=== PATIENT | female | born 1980 | race Caucasian/White ===

== ENCOUNTER → 2019-10-16 | Outpatient (CLI) | payer OTHER ==
[~2019-10-16] MED LIST: [UNRECOGNIZED DRUG - CODE] PO
[2019-10-16 13:30] LABS: MICROSCOPIC NOT IND
[2019-10-16 13:32] LABS: ALANINE AMINOTRANSFERASE 33 U/L (12-78); ALBUMIN 3.9 g/dL (3.4-5.0); ANION GAP 6 mmol/L (5-15); CALCIUM 8.6 mg/dL (8.5-10.1); CHLORIDE 110 mmol/L (98-107); CREATININE 0.64 mg/dL (0.55-1.02)
[2019-10-16 13:33] LABS: ALKALINE PHOSPHATASE 43 U/L (45-117); BILIRUBIN,TOTAL 0.4 mg/dL (0.2-1.0); TOTAL PROTEIN 7.1 g/dL (6.4-8.2)
[2019-10-16 13:35] LABS: CULTURE INDICATED? NO
[2019-10-16 14:01] LABS: BASOPHILS # (AUTO) 0.05 x10^3/uL (0-0.1); BASOPHILS % (AUTO) 1 % (0-1); EOSINOPHILS # (AUTO) 0.22 x10^3/uL (0-0.4); EOSINOPHILS % (AUTO) 3 % (1-7); LYMPHOCYTES # (AUTO) 1.91 x10^3/uL (1-3.4); LYMPHOCYTES % (AUTO) 23 % (22-44); MD NO; MEAN CORPUSCULAR HEMOGLOBIN 28.8 pg (27.0-34.8); MEAN CORPUSCULAR HGB CONC 33.4 g/dL (32.4-35.8); MEAN CORPUSCULAR VOLUME 86.1 fL (80-100); MEAN PLATELET VOLUME 7.7 fL (7.4-10.4); MONOCYTES # (AUTO) 0.53 x10^3/uL (0.2-0.8); MONOCYTES % (AUTO) 7 % (2-9); NEUTROPHILS # (AUTO) 5.53 x10^3/uL (1.8-6.8); NEUTROPHILS % (AUTO) 67 % (42-75); PLATELET COUNT 372 x10^3/uL (130-400); RED BLOOD COUNT 4.97 x10^6/uL (3.82-5.3); RED CELL DISTRIBUTION WIDTH 13.7 % (9.6-15.2)
== END | disposition home or self-care (01) ==
LOC: STAR 12:21
PROVIDERS: ATTEND Obstetrics & Gynecology
DX: Z01.812 Encounter for preprocedural laboratory examination (principal); N92.0 Excessive and frequent menstruation with regular cycle; N94.6 Dysmenorrhea, unspecified; R10.2 Pelvic and perineal pain
CPT/HCPCS: 36415; 80053; 81003; 84702; 85025

== ENCOUNTER 2019-10-25 05:42 | Day surgery (SDC) | payer OTHER ==
[~2019-10-25] VITALS: Ht 162.6 cm; Wt 87.0 kg
[2019-10-25] MEDS ORDERED: LACTATED RINGERS 1,000 ML IV SCH (06:04)
[2019-10-25 06:19] VITALS: BP 124/80
[2019-10-25] MEDS ORDERED: ACETAMINOPHEN 500 MG TABLET PO ONE (06:30)
[2019-10-25] MEDS ORDERED: BUPIVACAINE/PF-EPI 0.5% 1:200K ONE (06:37)
[2019-10-25 06:39] LABS: HCG UR SG 1.005 (1.003-1.030)
[2019-10-25] MEDS ORDERED: GABAPENTIN 300 MG CAPSULE ONE ×2 (07:20)
[2019-10-25] MEDS ORDERED: MIDAZOLAM 1 MG/ML, 2ML ONE ×2 (07:24→09:40)
[2019-10-25] MEDS ORDERED: FENTANYL PF 250 MCG/5ML ONE (07:24)
[2019-10-25] MEDS ORDERED: PROPOFOL 200 ML ONE (07:28)
[2019-10-25] MEDS ORDERED: DEXAMETHASONE 4 MG/ML, 1ML ONE (07:54)
[2019-10-25] MEDS ORDERED: PROPOFOL 10 MG/ML, 20ML ONE (07:54)
[2019-10-25] MEDS ORDERED: NEOSTIGMINE 1 MG/ML, 10ML ONE (07:54)
[2019-10-25] MEDS ORDERED: GLYCOPYRROLATE 0.2MG/1ML, 5ML ONE (07:54)
[2019-10-25] MEDS ORDERED: SUCCINYLCHOLINE 20 MG/ML, 10ML ONE (07:54)
[2019-10-25] MEDS ORDERED: CEFAZOLIN 1,000 MG ONE (07:54)
[2019-10-25] MEDS ORDERED: ROCURONIUM 10MG/ML,5ML ONE (07:54)
[2019-10-25] MEDS ORDERED: ONDANSETRON 2MG/ML, 2ML ONE ×2 (07:54→15:17)
[2019-10-25] MEDS ORDERED: PROMETHAZINE 25 MG/ML, 1ML IV PRN (08:00)
[2019-10-25] MEDS ORDERED: hydrALAzine 20 MG/ML, 1ML IV PRN (08:00)
[2019-10-25] MEDS ORDERED: LABETALOL 5MG/ML, 20ML IV PRN (08:00)
[2019-10-25] MEDS ORDERED: DIAZEPAM 5 MG/ML, 2ML IVPush PRN (08:00)
[2019-10-25] MEDS ORDERED: MEPERIDINE/PF 25MG/0.5ML IVPush PRN (08:00)
[2019-10-25] MEDS ORDERED: ALBUTEROL SULFATE 2.5 MG/3 ML NPPB PRN (08:00)
[2019-10-25] MEDS ORDERED: HYDROmorphone 1 MG/ML, 1ML INJ IVPush PRN (08:00)
[2019-10-25] MEDS ORDERED: OXYcodone 5 MG/5 ML ORAL.SOL UDC PO PRN (08:00)
[2019-10-25] MEDS ORDERED: PROPOFOL 100 ML ONE (08:39)
[2019-10-25] MEDS ORDERED: SODIUM CHLORIDE 0.9% 50 ML ONE (08:56)
[2019-10-25] MEDS ORDERED: FLUORESCEIN SODIUM 500 MG/5 ML ONE (08:56)
[2019-10-25] MEDS ORDERED: EPINEPHRINE 1 MG/ML, 1ML ONE (08:56)
[2019-10-25] MEDS ORDERED: BUPIVACAINE/PF 0.25% ONE (08:56)
[2019-10-25] MEDS ORDERED: NEOMY/POLYMYXIN B GU IRR. 1 ML ONE (08:57)
[2019-10-25] MEDS ORDERED: SUGAMMADEX 200 MG/2 ML IVPush ONE (09:59)
[2019-10-25] MEDS ORDERED: FENTANYL PF 100 MCG/2ML ONE (11:04)
[2019-10-25] MEDS ORDERED: OXYcodone 5 MG/5 ML ORAL.SOL UDC ONE (11:05)
[2019-10-25] MEDS: FENTANYL PF 100 MCG/2ML IV PRN ×3 (11:05→11:23)
[2019-10-25] MEDS ORDERED: ONDANSETRON 2MG/ML, 2ML IVPush PRN (15:30)
== END 2019-10-25 16:30 | disposition home or self-care (01) ==
LOC: OUT 05:42
PROVIDERS: ATTEND Obstetrics & Gynecology
DX: N39.3 Stress incontinence (female) (male) (principal); N94.6 Dysmenorrhea, unspecified; N88.8 Other specified noninflammatory disorders of cervix uteri; N87.9 Dysplasia of cervix uteri, unspecified; N92.0 Excessive and frequent menstruation with regular cycle; G43.909 Migraine, unspecified, not intractable, without status migrainosus; J45.909 Unspecified asthma, uncomplicated; Z98.51 Tubal ligation status; Z79.899 Other long term (current) drug therapy; Z98.890 Other specified postprocedural states; Z82.49 Family history of ischemic heart disease and other diseases of the circulatory system; Z82.3 Family history of stroke; Z80.3 Family history of malignant neoplasm of breast
CPT/HCPCS: 36415; 57288; 58571; 81025; 86850; 86900; 88307; C1771; J0171; J0330; J0690; J1100; J2250; J2405; J2704; J2710; J3010; J3490; J7120

== ENCOUNTER 2020-02-27 17:00 | Emergency (ER) | payer OTHER ==
[~2020-02-27] VITALS: Ht 162.6 cm; Wt 96.0 kg
[2020-02-27 17:05] VITALS: BP 147/77
--- NOTE | 2020-02-27 18:04 | NUR ---
PT OK FOR D/C PER [facility]. WILL D/C WHEN PAPERWORK AVILABLE.
--- NOTE | 2020-02-27 18:26 | NUR ---
Patient given discharge instructions and they have confirmed that they understand the instructions. Patient ambulatory with steady gait.
== END 2020-02-27 18:28 | disposition home or self-care (01) ==
LOC: ED 17:35
DX: S90.32XA Contusion of left foot, initial encounter (principal); X58.XXXA Exposure to other specified factors, initial encounter; Y93.89 Activity, other specified; Y92.009 Unspecified place in unspecified non-institutional (private) residence as the place of occurrence of the external cause; Y99.8 Other external cause status
CPT/HCPCS: 99283

== ENCOUNTER → 2020-06-25 | Outpatient (CLI) | payer OTHER ==
[2020-06-25 08:11] LABS: BASOPHILS % (AUTO) 1 % (0-1); EOSINOPHILS % (AUTO) 5 % (1-7); LYMPHOCYTES % (AUTO) 34 % (22-44); MEAN CORPUSCULAR HGB CONC 33.3 g/dL (32.4-35.8); MEAN PLATELET VOLUME 6.8 fL (7.4-10.4); MONOCYTES % (AUTO) 8 % (2-9); NEUTROPHILS % (AUTO) 53 % (42-75); PLATELET COUNT 325 x10^3/uL (130-400); RED BLOOD COUNT 5.06 x10^6/uL (3.82-5.3); RED CELL DISTRIBUTION WIDTH 12.9 % (9.6-15.2)
[2020-06-25 08:15] LABS: MD NO
[2020-06-25 08:20] LABS: ANION GAP 6 mmol/L (5-15); CHLORIDE 109 mmol/L (98-107)
[2020-06-25 08:31] LABS: ALANINE AMINOTRANSFERASE 20 U/L (12-78); ALKALINE PHOSPHATASE 44 U/L (45-117); BILIRUBIN,TOTAL 0.4 mg/dL (0.2-1.0); CHOL/HDL RATIO 2.2; CHOLESTEROL, TOTAL 197 mg/dL (140-239); CREATININE 0.75 mg/dL (0.55-1.02); FREE T4 (FREE THYROXINE) 1.11 ng/dL (0.76-1.46); HDL CHOL % 45 % (28-40); HDL CHOLESTEROL (DIRECT) 89 mg/dL (40-60); LDL CHOLESTEROL,CALCULATED 98 mg/dL (54-169); LDL/HDL RATIO 1.1 (0.5-3.0); TOTAL PROTEIN 7.2 g/dL (6.4-8.2); TRIGLYCERIDES 52 mg/dL (50-200); VLDL CHOLESTEROL 10 mg/dL (0-25)
== END | disposition home or self-care (01) ==
LOC: LAB 07:55
PROVIDERS: ATTEND Nurse Practitioner Family
DX: Z00.00 Encounter for general adult medical examination without abnormal findings (principal); F32.9 Major depressive disorder, single episode, unspecified; R63.5 Abnormal weight gain
CPT/HCPCS: 36415; 80053; 80061; 82306; 83036; 84439; 84443; 85025

== ENCOUNTER → 2020-07-22 | Outpatient (CLI) | payer OTHER | END | disposition home or self-care (01) | LOC: CFH 13:30 | PROVIDERS: ATTEND Orthopaedic Surgery | DX: S83.241A Other tear of medial meniscus, current injury, right knee, initial encounter (principal); X58.XXXA Exposure to other specified factors, initial encounter; Y93.89 Activity, other specified; Y92.89 Other specified places as the place of occurrence of the external cause; Y99.8 Other external cause status ==

== ENCOUNTER → 2020-12-15 | Outpatient (CLI) | payer OTHER ==
[2020-12-15 08:16] LABS: BASOPHILS % (AUTO) 1 % (0-1); EOSINOPHILS % (AUTO) 4 % (1-7); LYMPHOCYTES % (AUTO) 36 % (22-44); MEAN CORPUSCULAR HEMOGLOBIN 29.1 pg (27.0-34.8); MEAN CORPUSCULAR HGB CONC 33.2 g/dL (32.4-35.8); MEAN PLATELET VOLUME 6.6 fL (7.4-10.4); MONOCYTES % (AUTO) 6 % (2-9); NEUTROPHILS % (AUTO) 53 % (42-75); PLATELET COUNT 347 x10^3/uL (130-400); RED BLOOD COUNT 4.76 x10^6/uL (3.82-5.3); RED CELL DISTRIBUTION WIDTH 12.9 % (9.6-15.2)
[2020-12-15 08:20] LABS: MD NO
[2020-12-15 08:32] LABS: ALBUMIN 3.9 g/dL (3.4-5.0); ANION GAP 6 mmol/L (5-15); CALCIUM 8.5 mg/dL (8.5-10.1); CHLORIDE 110 mmol/L (98-107)
[2020-12-15 08:40] LABS: ALANINE AMINOTRANSFERASE 18 U/L (12-78); ALKALINE PHOSPHATASE 37 U/L (45-117); BILIRUBIN,TOTAL 0.3 mg/dL (0.2-1.0); C-REACTIVE PROTEIN, QUANT 0.45 mg/dL (0.02-0.49); CHOLESTEROL, TOTAL 187 mg/dL (140-239); CREATINE KINASE, TOTAL 53 U/L (26-192); CREATININE 0.64 mg/dL (0.55-1.02); HDL CHOL % 34 % (28-40); HDL CHOLESTEROL (DIRECT) 63 mg/dL (40-60); LDL CHOLESTEROL,CALCULATED 115 mg/dL (54-169); LDL/HDL RATIO 1.8 (0.5-3.0); TOTAL PROTEIN 6.9 g/dL (6.4-8.2); TRIGLYCERIDES 46 mg/dL (50-200); VLDL CHOLESTEROL 9 mg/dL (0-25)
[2020-12-15 09:25] LABS: HCT (SEDRATE) 41.7 % (34.6-47.8)
== END | disposition home or self-care (01) ==
LOC: LAB 07:51
PROVIDERS: ATTEND Nurse Practitioner Family
DX: Z00.01 Encounter for general adult medical examination with abnormal findings (principal); J45.30 Mild persistent asthma, uncomplicated; R63.5 Abnormal weight gain; M79.10 Myalgia, unspecified site
CPT/HCPCS: 36415; 80053; 80061; 82550; 82652; 84443; 85025; 85651; 86038; 86140

== ENCOUNTER → 2021-01-08 | Outpatient (CLI) | payer OTHER ==
[2021-01-08 14:13] LABS: BASOPHILS % (AUTO) 1 % (0-1); EOSINOPHILS % (AUTO) 1 % (1-7); LYMPHOCYTES % (AUTO) 34 % (22-44); MEAN CORPUSCULAR HEMOGLOBIN 29.2 pg (27.0-34.8); MEAN CORPUSCULAR HGB CONC 33.4 g/dL (32.4-35.8); MONOCYTES % (AUTO) 6 % (2-9); NEUTROPHILS % (AUTO) 59 % (42-75); PLATELET COUNT 350 x10^3/uL (130-400); RED BLOOD COUNT 4.77 x10^6/uL (3.82-5.3); RED CELL DISTRIBUTION WIDTH 13.3 % (9.6-15.2)
[2021-01-08 14:14] LABS: MD NO
[2021-01-08 14:23] LABS: ANION GAP 5 mmol/L (5-15); CALCIUM 8.5 mg/dL (8.5-10.1); CHLORIDE 108 mmol/L (98-107)
[2021-01-08 14:27] LABS: INTERNATIONAL NORMALIZED RATIO 0.99 (0.93-1.1); PROTHROMBIN TIME 10.6 Seconds (9.6-11.5)
[2021-01-08 14:38] LABS: MICROSCOPIC NOT IND
[2021-01-08 14:48] LABS: HCT (SEDRATE) 41.6 % (34.6-47.8)
[2021-01-08 14:51] LABS: CREATININE 0.72 mg/dL (0.55-1.02)
[2021-01-08 14:52] LABS: ALKALINE PHOSPHATASE 40 U/L (45-117); BILIRUBIN,TOTAL 0.2 mg/dL (0.2-1.0); C-REACTIVE PROTEIN, QUANT 0.15 mg/dL (0.02-0.49); TOTAL PROTEIN 6.8 g/dL (6.4-8.2)
[2021-01-08 15:56] LABS: ALANINE AMINOTRANSFERASE 21 U/L (12-78)
[2021-01-13 12:21] LABS: ANA SCREEN POSITIVE (Negative); ANTI-NUCLEAR ANTIBODY PATTERN SPECKLED
== END | disposition home or self-care (01) ==
LOC: LAB 13:42
PROVIDERS: ATTEND Orthopaedic Surgery
DX: M77.11 Lateral epicondylitis, right elbow (principal)
CPT/HCPCS: 36415; 80053; 81003; 81374; 82306; 84443; 84550; 85025; 85610; 85651; 85730; 86038; 86039; 86140; 86160; 86162; 86200; 86225; 86235; 86430

== ENCOUNTER 2021-04-09 07:48 | Outpatient (CLI) | payer OTHER ==
[2021-04-09 08:28] LABS: BASOPHILS % (AUTO) 1 % (0-1); EOSINOPHILS % (AUTO) 4 % (1-7); LYMPHOCYTES % (AUTO) 31 % (22-44); MEAN CORPUSCULAR HEMOGLOBIN 28.7 pg (27.0-34.8); MEAN PLATELET VOLUME 7.3 fL (7.4-10.4); MONOCYTES % (AUTO) 6 % (2-9); NEUTROPHILS % (AUTO) 58 % (42-75); PLATELET COUNT 318 x10^3/uL (130-400); RED BLOOD COUNT 4.78 x10^6/uL (3.82-5.3); RED CELL DISTRIBUTION WIDTH 13.2 % (9.6-15.2)
[2021-04-09 08:33] LABS: HCT (SEDRATE) 40.9 % (34.6-47.8)
[2021-04-09 08:37] LABS: ALBUMIN 3.6 g/dL (3.4-5.0); ANION GAP 4 mmol/L (5-15); CHLORIDE 110 mmol/L (98-107)
[2021-04-09 08:40] LABS: ALANINE AMINOTRANSFERASE 19 U/L (12-78); ALKALINE PHOSPHATASE 38 U/L (45-117); BILIRUBIN,TOTAL 0.4 mg/dL (0.2-1.0); CREATININE 0.62 mg/dL (0.55-1.02); TOTAL PROTEIN 6.7 g/dL (6.4-8.2)
[2021-04-09 08:58] LABS: MICROSCOPIC NOT IND
[2021-04-09 10:54] LABS: CREATININE,URINE RANDOM 63.9 mg/dL
== END 2021-04-09 23:59 | disposition home or self-care (01) ==
LOC: LAB 07:48 → RAD 23:59
PROVIDERS: ATTEND Internal Medicine
DX: R06.89 Other abnormalities of breathing (principal); R76.0 Raised antibody titer; M25.50 Pain in unspecified joint; M06.9 Rheumatoid arthritis, unspecified
CPT/HCPCS: 36415; 71046; 80053; 81003; 81374; 82164; 82570; 83516; 84156; 85025; 85613; 85651; 85670; 85705; 85732; 86140; 86146; 86147; 86160; 86200; 86235; 86430